=== PATIENT | female | born 1985 | race Two or more races ===

== ENCOUNTER 2021-03-16 12:36 | Emergency (ER) | payer OTHER ==
[~2021-03-16] VITALS: Ht 180.3 cm; Wt 121.6 kg
[~2021-03-16 12:36] MED LIST: ADVAIR 2501 DISK W/1; ALBUTEROL2.5 MG/3 M IH; ASA81 MG; COLACE100 MG PO; FLEXERIL10 MG; PROTONIX40 MG PO; PROVENTIL HFA6.7 GM IH; SINGULAIR 10MG10 MG; TRAMADOL HCL-AP1 TAB PO
[2021-03-16] MEDS ORDERED: DEPAKOTE ER500 MG PO (13:22)
[2021-03-16] MEDS ORDERED: TEMAZEPAM15 MG PO (13:23)
[2021-03-16] MEDS ORDERED: NORVASC5 MG PO (13:23)
[2021-03-16] MEDS ORDERED: ATIVAN0.5 M1 PO (13:23)
[2021-03-16] MEDS ORDERED: LOSARTAN POTAS100 MG PO (13:23)
[2021-03-16] MEDS ORDERED: TRILEPTAL600 MG PO (13:24)
== END 2021-03-16 18:55 | disposition home or self-care (01) ==
LOC: ER 12:36
DX: J45.41 Moderate persistent asthma with (acute) exacerbation (principal); B34.8 Other viral infections of unspecified site; Z20.822 Contact with and (suspected) exposure to COVID-19